=== PATIENT | male | born 1965 | race Caucasian/White ===

== ENCOUNTER → 2021-08-18 11:58 | Outpatient (BNVA) | payer OTHER, SELFPAY | PROVIDERS: PCP Nurse Practitioner; Visit Provider Surgery | DX: Z11.52 Encounter for screening for COVID-19 (principal) | CPT/HCPCS: 87635 ==

== ENCOUNTER 2021-08-23 07:24 | Day surgery (SDC) | payer OTHER, SELFPAY ==
[2021-08-18 12:51] VITALS: BMI 28.2
[2021-08-23 08:02] VITALS: BP 156/100; PULSE 67; RESP 16; TEMP 36.5; O2SAT 97
[2021-08-23] MEDS: sodium chloride 0.9% 1,000 ML 30 ML IV (08:16)
--- NOTE | 2021-08-23 09:36 | ANES.PREANE2 ---
Pre-Anesthetic Assessment Height/Weight: Height 1.83 m Weight 94.347 kg Temp Pulse Resp BP Pulse Ox 97.7 F 67 16 156/100 97 08/23/21 08:02 08/23/21 08:02 08/23/21 08:02 08/23/21 08:02 08/23/21 08:02 Preop Diagnosis: upper gi symptoms Operation Date: 08/23/21 08:45 Proposed Procedures p EGD balloon dilation K22.70(Not Applicable) - Amadeo Velásquez MD Familial anesthetic complications: none Last intake: Intake Last Liquid Date 08/22/21 Last Liquid Time 23:00 Last Solid Date 08/22/21 Last Solid Time 22:00 Social No alcohol and No tobacco Exam alert, oriented x 3, clear to auscultation bilaterally and regular rate & rhythm Airway Dentition: other (poor states his teeth are rotten ) Pulmonary None reported CV/HEM Hypertension None reported Hepatic None reported GI None reported Metabolic None reported Musc/skel None reported Neuropsych None reported Anesthetic Plan ASA status: 2 Anesthesia: MAC Medications/Allergies Home Medications Medication Instructions Recorded Confirmed Last Taken Type allopurinol 300 mg tablet 300 mg PO DAILY 08/15/21 08/18/21 08/23/21 05:00 History metoprolol tartrate 100 mg tablet 50 mg PO BID tab 08/15/21 08/18/21 08/23/21 05:00 History Allergies Allergy/AdvReac Type Severity Reaction Status Date / Time No Known Allergies Allergy Unverified 08/18/21 12:49 Current Medications Generic Name Dose Route Start Last Admin Trade Name Freq PRN Reason Stop Dose Admin Sodium Chloride 1,000 mls @ 30 mls/hr 08/23/21 07:45 08/23/21 08:16 Sodium Chloride 0.9% IV 08/24/21 07:44 30 mls/hr .Q24H LEON Administration PFSH Anesthesia Medical History (Updated 08/15/21 @ 13:56 by Amadeo Velásquez MD) Barretts esophagus GERD (gastroesophageal reflux disease) Hyperlipemia Hypertension PTSD (post-traumatic stress disorder) Surgical History (Updated 08/15/21 @ 13:56 by Amadeo Velásquez MD) H/O esophagogastroduodenoscopy H/O hand surgery left History of colonoscopy 2018 or 2019 History of eye surgery Bilateral History of repair of hiatal hernia Social History Smoking and tobacco status: never smoked Data Anesthesia Cardiac Studies: No Data to Display
--- NOTE | 2021-08-23 11:21 | P.HP_ITS ---
Same Day Surgery H&P Indication for Procedure/HPI DATE OF PROCEDURE: August 23, 2021 CHIEF COMPLAINT/INDICATIONFOR SURGICAL PROCEDURE: screening PREOP DIAGNOSIS: upper gi symptoms PLANNED PROCEDURE: Operation Date: 08/23/21 08:45 Proposed Procedures p EGD balloon dilation K22.70(Not Applicable) - Amadeo Velásquez MD Medications/Allergies* Home Medications Medication Instructions Recorded Confirmed Type allopurinol 300 mg tablet 300 mg PO DAILY 08/15/21 08/18/21 History metoprolol tartrate 100 mg tablet 50 mg PO BID tab 08/15/21 08/18/21 History Allergies/Adverse Reactions Allergy/AdvReac Type Severity Reaction Status Date / Time No Known Allergies Allergy Unverified 08/18/21 12:49 Current Medications: Generic Name Dose Route Start Last Admin Trade Name Freq PRN Reason Stop Dose Admin Sodium Chloride 1,000 mls @ 30 mls/hr 08/23/21 07:45 08/23/21 08:16 Sodium Chloride 0.9% IV 08/24/21 07:44 30 mls/hr .Q24H LEON Administration Pertinent History/Comorbid Conditions* Medical History (Updated 08/15/21 @ 13:56 by Amadeo Velásquez MD) Barretts esophagus GERD (gastroesophageal reflux disease) Hyperlipemia Hypertension PTSD (post-traumatic stress disorder) Surgical History (Updated 08/15/21 @ 13:56 by Amadeo Velásquez MD) H/O esophagogastroduodenoscopy H/O hand surgery left History of colonoscopy 2018 or 2019 History of eye surgery Bilateral History of repair of hiatal hernia Social History Smoking and tobacco status: never smoked Pertinent Exam Findings alert, oriented x 3 and regular rate & rhythm Recommendations Surgery/Procedure today Coding Level of Care Code Acute Litigation Docket Manager for Chg Nikolai
[2021-08-23 11:38] VITALS: BP 140/97; PULSE 84; RESP 18; TEMP 36.6; O2SAT 97
[2021-08-23 11:54] VITALS: BP 152/104; PULSE 76; RESP 16; O2SAT 96
--- NOTE | 2021-08-23 12:57 | ANE.PACU2 ---
Inpatient post-anesthesia follow up: Airway intact: Yes Vital signs: Temperature 97.8 F Pulse Rate 76 Respiratory Rate 16 Blood Pressure 152/104 Pulse Oximetry 96 Oxygen Delivery Me thod Room Air Oxygen Flow Rate Fraction of Inspir ed Oxygen Hydration adequate: Yes Nausea and vomiting: No Pain level: 1 Mental status: Baseline
== END 2021-08-23 12:15 | disposition home or self-care (01) ==
PROVIDERS: PCP Nurse Practitioner; Visit Provider Surgery
DX: K29.70 Gastritis, unspecified, without bleeding (principal); K22.70 Barrett's esophagus without dysplasia; K29.80 Duodenitis without bleeding; K21.9 Gastro-esophageal reflux disease without esophagitis; E78.5 Hyperlipidemia, unspecified; I10 Essential (primary) hypertension
CPT/HCPCS: 43239; 88305; 88342; J2704; J7030

== ENCOUNTER → 2021-10-31 13:09 | Outpatient (BNVA) | payer OTHER, SELFPAY | PROVIDERS: PCP Nurse Practitioner; Referring Provider Nurse Practitioner; Visit Provider Podiatrist Foot & Ankle Surgery | DX: L60.8 Other nail disorders (principal); M72.2 Plantar fascial fibromatosis; Z87.891 Personal history of nicotine dependence | CPT/HCPCS: 73630; 99203; 99204 ==

== ENCOUNTER → 2021-12-05 13:56 | Outpatient (BNVA) | payer OTHER, SELFPAY | PROVIDERS: PCP Nurse Practitioner; Visit Provider Podiatrist Foot & Ankle Surgery | DX: M72.2 Plantar fascial fibromatosis (principal); L60.8 Other nail disorders; M79.672 Pain in left foot | CPT/HCPCS: 99213; 99214 ==

== ENCOUNTER → 2022-02-06 13:08 | Outpatient (BNVA) | payer OTHER, SELFPAY | PROVIDERS: PCP Nurse Practitioner; Visit Provider Podiatrist Foot & Ankle Surgery | DX: M72.2 Plantar fascial fibromatosis (principal); L60.8 Other nail disorders; M79.672 Pain in left foot; M76.72 Peroneal tendinitis, left leg | CPT/HCPCS: 99213; 99214 ==

== ENCOUNTER → 2022-04-17 14:03 | Outpatient (BNVA) | payer OTHER, SELFPAY | PROVIDERS: PCP Nurse Practitioner; Visit Provider Podiatrist Foot & Ankle Surgery | DX: M72.2 Plantar fascial fibromatosis (principal); M76.72 Peroneal tendinitis, left leg; L60.8 Other nail disorders | CPT/HCPCS: 99214 ==

== ENCOUNTER → 2022-07-10 14:54 | Outpatient (BNVA) | payer OTHER, SELFPAY | PROVIDERS: PCP Nurse Practitioner; Visit Provider Podiatrist Foot & Ankle Surgery | DX: M72.2 Plantar fascial fibromatosis (principal); M76.72 Peroneal tendinitis, left leg; L60.8 Other nail disorders | CPT/HCPCS: 99213 ==

== ENCOUNTER 2022-11-19 06:00 | Outpatient (RCR) | payer OTHER, SELFPAY | END 2022-12-19 23:59 | disposition home or self-care (01) | LOC: MOT 06:00 | PROVIDERS: Visit Provider Orthopaedic Surgery Hand Surgery | DX: M24.50 Contracture, unspecified joint (principal) | CPT/HCPCS: 97022; 97110; 97140; 97166 ==

== ENCOUNTER 2022-12-20 06:00 | Outpatient (RCR) | payer OTHER, SELFPAY | END 2023-01-18 23:59 | disposition home or self-care (01) | LOC: MOT 06:00 | PROVIDERS: Visit Provider Orthopaedic Surgery Hand Surgery | DX: M72.0 Palmar fascial fibromatosis [Dupuytren] (principal) | CPT/HCPCS: 97022; 97110; 97140 ==

== ENCOUNTER 2023-01-19 06:00 | Outpatient (RCR) | payer OTHER, SELFPAY | END 2023-02-18 23:59 | disposition home or self-care (01) | LOC: MOT 06:00 | PROVIDERS: Visit Provider Orthopaedic Surgery Hand Surgery | DX: M24.50 Contracture, unspecified joint (principal) | CPT/HCPCS: 97022; 97035; 97110; 97140 ==

== ENCOUNTER 2023-02-19 06:00 | Outpatient (RCR) | payer OTHER, SELFPAY | END 2023-03-21 23:59 | disposition home or self-care (01) | LOC: MOT 06:00 | PROVIDERS: Visit Provider Orthopaedic Surgery Hand Surgery | DX: M24.50 Contracture, unspecified joint (principal) | CPT/HCPCS: 97022; 97035; 97110; 97140 ==

== ENCOUNTER → 2023-04-17 17:21 | Outpatient (BNVA) | payer OTHER, SELFPAY | PROVIDERS: PCP Family Medicine; Visit Provider Internal Medicine Pulmonary Disease | DX: J67.2 Bird fancier's lung (principal); J30.2 Other seasonal allergic rhinitis; R06.02 Shortness of breath; Z77.22 Contact with and (suspected) exposure to environmental tobacco smoke (acute) (chronic); Z87.19 Personal history of other diseases of the digestive system; Z98.890 Other specified postprocedural states | CPT/HCPCS: 36415; 82785; 86003; 86331; 86606; 86609; 99204 ==

== ENCOUNTER 2023-04-25 06:48 | Outpatient (CLI) | payer OTHER, SELFPAY ==
[2023-04-25 07:29] VITALS: PULSE 95; RESP 18; O2SAT 98
[2023-04-25] MEDS: albuterol 2.5 mg/3 mL Neb INHALATION (07:31)
[2023-04-25 07:33] VITALS: PULSE 99
== END 2023-04-25 06:49 | disposition home or self-care (01) ==
PROVIDERS: PCP Family Medicine; Visit Provider Internal Medicine Pulmonary Disease
DX: R06.02 Shortness of breath (principal)
CPT/HCPCS: 94060; 94618; 94726; 94729; J7613

== ENCOUNTER → 2023-05-14 13:34 | Outpatient (BNVA) | payer OTHER, SELFPAY | PROVIDERS: PCP Family Medicine; Visit Provider Internal Medicine Pulmonary Disease | DX: J82.83 Eosinophilic asthma (principal); Z98.890 Other specified postprocedural states; Z87.19 Personal history of other diseases of the digestive system; Z77.22 Contact with and (suspected) exposure to environmental tobacco smoke (acute) (chronic) | CPT/HCPCS: 99214 ==

== ENCOUNTER → 2023-06-18 13:11 | Outpatient (BNVA) | payer OTHER, SELFPAY | PROVIDERS: PCP Family Medicine; Visit Provider Podiatrist Foot & Ankle Surgery | DX: M72.2 Plantar fascial fibromatosis; M76.72 Peroneal tendinitis, left leg; G62.9 Polyneuropathy, unspecified | CPT/HCPCS: 99213 ==

== ENCOUNTER → 2023-08-09 10:09 | Outpatient (BNVA) | payer OTHER, SELFPAY | PROVIDERS: PCP Family Medicine; Visit Provider Internal Medicine Pulmonary Disease | DX: J82.83 Eosinophilic asthma (principal); Z98.890 Other specified postprocedural states; Z87.19 Personal history of other diseases of the digestive system; Z77.22 Contact with and (suspected) exposure to environmental tobacco smoke (acute) (chronic) | CPT/HCPCS: 99214 ==

== ENCOUNTER → 2023-08-13 12:58 | Outpatient (BNVA) | payer OTHER, SELFPAY | PROVIDERS: PCP Family Medicine; Visit Provider Dermatology | DX: L57.8 Other skin changes due to chronic exposure to nonionizing radiation (principal); D18.01 Hemangioma of skin and subcutaneous tissue; L82.1 Other seborrheic keratosis; L91.8 Other hypertrophic disorders of the skin; L57.0 Actinic keratosis | CPT/HCPCS: 17000; 99203 ==

== ENCOUNTER 2024-02-05 14:35 | Outpatient (RCR) | payer OTHER, SELFPAY | END 2024-02-19 23:59 | disposition home or self-care (01) | LOC: SST 14:35 | PROVIDERS: PCP Nurse Practitioner; Visit Provider Nurse Practitioner | DX: R13.10 Dysphagia, unspecified (principal) | CPT/HCPCS: 92610 ==

== ENCOUNTER 2024-03-05 10:24 | Outpatient (CLI) | payer OTHER, SELFPAY ==
--- NOTE | 2024-03-05 10:31 | FL_ITS ---
WS: [id number] EXAMINATION: FL barium swallow modifd [id number] ORDER DATE: 03/05/2024 10:33 AM REASON FOR EXAM: Other dysphagia COMPARISON: None available. FLUOROSCOPY TIME: 1.9 # OF SPOT FILMS: 1, 7 video runs been performed FINDINGS: There is good oral motor control. The swallowing mechanism is intact. There is mild penetration without aspiration of thin liquid consi stency ingested through a straw The barium tablet passed freely into the stomach. FL/FL barium swallow modifd [id number] IMPRESSION: There was penetration without aspiration of thin liquids ingested through a str aw.
== END 2024-03-05 10:25 | disposition home or self-care (01) ==
LOC: RAD 10:25
PROVIDERS: PCP Nurse Practitioner; Visit Provider Nurse Practitioner
DX: R13.19 Other dysphagia (principal)
CPT/HCPCS: 74230; 92611

== ENCOUNTER 2024-03-22 06:30 | Outpatient (RCR) | payer OTHER, SELFPAY | END 2024-04-20 23:59 | disposition home or self-care (01) | LOC: SST 06:30 | PROVIDERS: PCP Nurse Practitioner; Visit Provider Nurse Practitioner | DX: R13.10 Dysphagia, unspecified (principal) | CPT/HCPCS: 92610 ==

== ENCOUNTER 2024-04-21 06:00 | Outpatient (RCR) | payer OTHER, SELFPAY | END 2024-05-21 23:59 | disposition home or self-care (01) | LOC: SST 06:00 | PROVIDERS: PCP Nurse Practitioner; Visit Provider Nurse Practitioner | DX: R13.10 Dysphagia, unspecified (principal) | CPT/HCPCS: 92610 ==

== ENCOUNTER → 2024-04-22 13:35 | Outpatient (BNVA) | payer OTHER, SELFPAY | PROVIDERS: PCP Nurse Practitioner; Visit Provider Surgery | DX: R13.10 Dysphagia, unspecified (principal); K21.9 Gastro-esophageal reflux disease without esophagitis | CPT/HCPCS: 99204; 99214 ==

== ENCOUNTER 2024-04-28 10:24 | Day surgery (SDC) | payer OTHER, SELFPAY ==
--- NOTE | 2024-04-28 10:40 | W.PM.OPSUD ---
Surgery/Procedure H&P Update DATE OF PROCEDURE: April 28, 2024 DATE H&P PERFORMED: 04/22/24 H&P UPDATE INFORMATION: I have reviewed H&P completed within last 30 days, I have examined patient prior to procedure, No changes to prior documentation and Changes to prior documentation as noted here PLANNED PROCEDURE: Operation Date: 04/28/24 11:35 Proposed Procedures p EGD 24891, K21.9(Not Applicable) - Huan Fuller MD
[2024-04-28 10:44] VITALS: BP 145/104; PULSE 89; RESP 18; TEMP 36.3; O2SAT 95
[2024-04-28] MEDS: sodium chloride 0.9% 1,000 ML 30 ML IV (11:04)
--- NOTE | 2024-04-28 11:09 | ANES.PREANE2 ---
Pre-Anesthetic Assessment Height/Weight: Height 1.83 m Weight 101.151 kg Temp Pulse Resp BP Pulse Ox O2 Del Method 97.3 F L 89 18 145/104 95 Room Air 04/28/24 10:44 04/28/24 10:44 04/28/24 10:44 04/28/24 10:44 04/28/24 10:44 04/28/24 10:44 Preop Diagnosis: GERD Operation Date: 04/28/24 11:35 Proposed Procedures p EGD 09662, K21.9(Not Applicable) - Huan Fuller MD Familial anesthetic complications: trouble waking up Was Beta Shant taken within 24 hours: N/A Was Clonidine taken within 24 hours: N/A Last intake: Intake Last Liquid Date 04/27/24 Last Liquid Time 23:55 Last Solid Date 04/27/24 Last Solid Time 17:00 Social Alcohol ( very little ) and No tobacco Exam alert, oriented x 3, clear to auscultation bilaterally and regular rate & rhythm Airway Submandibular: within normal limits Cervical ROM: within normal limits Mallampati: Class I Dentition: chipped and full Pulmonary Exertional Dyspnea bronchiole issue CV/HEM Hypertension None reported Hepatic None reported GI Gastroesophageal Reflux Disease Metabolic None reported Musc/skel Scoliosis Gout Neuropsych Anxiety and Headache Anesthetic Plan ASA status: 2 Anesthesia: MAC Risk of > 500 ml blood loss (7ml/kg in children): No Medications/Allergies Home Medications Medication Instructions Recorded Confirmed Last Taken Type allopurinol 300 mg tablet 300 mg PO DAILY 08/15/21 04/27/24 04/27/24 History Carbon fiber sport custom insoles #1 ea 10/31/21 04/22/24 04/27/24 Rx prednisone 20 mg tablet 20 mg PO DAILY #28 tabs 04/17/23 04/27/24 04/27/24 Rx gabapentin 100 mg capsule 100 mg PO BID 06/18/23 04/27/24 04/27/24 History albuterol sulfate 90 mcg/actuation 2 puff inhalation Q6H PRN 08/09/23 04/27/24 04/27/24 Rx aerosol inhaler shortness of breath or wheezing #8.5 grams fluticasone 250 mcg-salmeterol 50 1 inh inhalation BID #60 ea 08/09/23 04/27/24 04/27/24 Rx mcg/dose blistr powdr for inhalation (Wixela Inhub) Allergies Allergy/AdvReac Type Severity Reaction Status Date / Time No Known Allergies Allergy Verified 04/27/24 09:00 Current Medications Generic Name Dose Route Start Last Admin Trade Name Freq PRN Reason Stop Dose Admin Sodium Chloride 1,000 mls @ 30 mls/hr 04/28/24 10:30 04/28/24 11:04 Sodium Chloride 0.9% IV 30 mls/hr .Q24H LEON Administration PFSH Anesthesia Medical History Helicobacter pylori gastritis Barretts esophagus PTSD (post-traumatic stress disorder) Hyperlipemia Hypertension GERD (gastroesophageal reflux disease) Surgical History (Updated 04/22/24 @ 13:48 by Kadi Hooper, CT) H/O hand surgery left H/O esophagogastroduodenoscopy (08/23/21) History of repair of hiatal hernia History of eye surgery Bilateral History of colonoscopy 2018 or 2019 Family History (Updated 04/22/24 @ 13:46 by Kadi Hooper, CT) Mother Cancer lung Social History Smoking and tobacco/nicotine status: never used tobacco/nicotine Data Anesthesia Cardiac Studies: No Data to Display
[2024-04-28 11:36] VITALS: BP 136/107; PULSE 95; RESP 12; TEMP 36.3; O2SAT 92
[2024-04-28 11:51] VITALS: BP 131/93; PULSE 75; RESP 16; O2SAT 95
--- NOTE | 2024-04-28 12:20 | ANE.PACU2 ---
Inpatient post-anesthesia follow up: Airway intact: Yes Vital signs: Temperature 97.4 F Pulse Rate 75 Respiratory Rate 16 Blood Pressure 131/93 Pulse Oximetry 95 Oxygen Delivery Me thod Room Air Oxygen Flow Rate Fraction of Inspir ed Oxygen Hydration adequate: Yes Nausea and vomiting: No Pain level: 1 Mental status: Baseline
== END 2024-04-28 12:25 | disposition home or self-care (01) ==
PROVIDERS: PCP Nurse Practitioner; Visit Provider Surgery
PROC: 0DJ08ZZ Inspection of Upper Intestinal Tract, Via Natural or Artificial Opening Endoscopic (ICD-10-PCS; CPT 43235; principal; 2024-04-28 11:35)
DX: K21.9 Gastro-esophageal reflux disease without esophagitis (principal); K29.70 Gastritis, unspecified, without bleeding; E78.5 Hyperlipidemia, unspecified; I10 Essential (primary) hypertension
CPT/HCPCS: 43239; 88305; J2704; J7030

== ENCOUNTER → 2024-05-13 09:36 | Outpatient (BNVA) | payer OTHER, SELFPAY | PROVIDERS: PCP Nurse Practitioner; Visit Provider Surgery | DX: Z09 Encounter for follow-up examination after completed treatment for conditions other than malignant neoplasm (principal); R03.0 Elevated blood-pressure reading, without diagnosis of hypertension | CPT/HCPCS: 99213 ==

== ENCOUNTER 2024-07-30 08:55 | Outpatient (CLI) | payer OTHER, SELFPAY ==
--- NOTE | 2024-07-30 09:01 | FL_ITS ---
WS: [id number] Barium swallow and esophagram, 07/30/2024 Clinical Data: R13.14 DYSPHAGIA, PHARYNGOESPHAGEAL PHASE Comparison: None. Fluoroscopy time: 1min [id number] # of spot films: 43 Findings: The patient swallowed the thick and thin barium, and it flowed through the hypopharynx without hesita tion. No stricture, mass, polyp or erosion was seen. No penetration or aspiration occurred. The barium entered the esophagus and there was normal motility throughout. No reflux, stricture, afsaneh yp, mass, erosion or ulcer was noted. There was a small sliding hiatal hernia. The barium passed norm ally into the stomach. FL/FL barium swallow [id number] Impression: 1. Negative for aspiration or penetration. 2. Small sliding hiatal hernia without reflux.
== END 2024-07-30 08:56 | disposition home or self-care (01) ==
LOC: RAD 08:56
PROVIDERS: PCP Nurse Practitioner; Visit Provider Otolaryngology
DX: R05.3 Chronic cough (principal); J37.0 Chronic laryngitis; R13.14 Dysphagia, pharyngoesophageal phase; K21.9 Gastro-esophageal reflux disease without esophagitis; R09.89 Other specified symptoms and signs involving the circulatory and respiratory systems; K44.9 Diaphragmatic hernia without obstruction or gangrene
CPT/HCPCS: 74220

== ENCOUNTER 2024-08-05 08:36 | Outpatient (CLI) | payer OTHER, SELFPAY ==
--- NOTE | 2024-08-05 08:38 | CT_ITS ---
WS: [id number] CT NECK WITH CONTRAST HISTORY: CHRONIC COUGH TECHNIQUE: Contiguous 2 mm axial images are performed through the neck with intravenous contrast. Sag ittal and coronal reformats are also submitted. All CT scans at [facility] use at least one o f these dose optimization techniques: automated exposure control; mA and/or kV adjustment per patient size (includes targeted exams where dose is matched to clinical indication); or iterative reconstruc tion. CONTRAST: CONTRAST: Omnipaque 350; 100 mL IV. DLP: 208.43 mGy.cm COMPARISON: 05/02/2023 Nasopharynx, oropharynx, hypopharynx and larynx are unremarkable. No soft tissue masses or abnormal e nhancement. Torus tubarius and fossa of Rosenmuller and parapharyngeal fat are normal. Small cervical chain lymph nodes measure up to 9 mm at level 2 on the RIGHT. There are subcentimeter lymph nodes extending along the cervical chains in the supraclavicular region. These lymph nodes are small caliber but and not necrotic. Normal appearance of the thyroid gland LEFT parotid 5.3 mm enhancing mass is probably a lymph node. No osseous abnormalities. Visualized portions of the skull base demonstrate no abnormalities. Orbits and globes are within norm al limits. No soft tissue masses. Visualized paranasal sinuses and mastoid air cells are normal. RIGHT apical nodule similar to the study from 05/02/2023. CT/CT neck w con* [id number] IMPRESSION: 1. No laryngeal mass or tongue base mass or abnormal enhancement. 2. Small cervical chain lymph nodes. No adenopathy.
[2024-08-05] MEDS: iohexol 350 mg/mL 500 mL Btl (per mL) IV (09:05)
== END 2024-08-05 08:37 | disposition home or self-care (01) ==
LOC: RAD 08:36
PROVIDERS: PCP Nurse Practitioner; Visit Provider Otolaryngology
DX: R05.3 Chronic cough (principal); J37.0 Chronic laryngitis; R13.14 Dysphagia, pharyngoesophageal phase; K21.9 Gastro-esophageal reflux disease without esophagitis; R09.89 Other specified symptoms and signs involving the circulatory and respiratory systems; R59.0 Localized enlarged lymph nodes; R93.89 Abnormal findings on diagnostic imaging of other specified body structures; R91.1 Solitary pulmonary nodule
CPT/HCPCS: 70491

== ENCOUNTER → 2024-08-13 12:48 | Outpatient (BNVA) | payer OTHER, SELFPAY | PROVIDERS: PCP Nurse Practitioner; Visit Provider Nurse Practitioner Family | DX: D18.01 Hemangioma of skin and subcutaneous tissue (principal); L91.8 Other hypertrophic disorders of the skin; L57.8 Other skin changes due to chronic exposure to nonionizing radiation | CPT/HCPCS: 99213 ==

== ENCOUNTER → 2024-12-02 13:45 | Outpatient (BNVA) | payer OTHER, SELFPAY | PROVIDERS: PCP Nurse Practitioner; Referring Provider Nurse Practitioner; Visit Provider Anesthesiology Pain Medicine | DX: M54.9 Dorsalgia, unspecified (principal); G62.9 Polyneuropathy, unspecified; M47.816 Spondylosis without myelopathy or radiculopathy, lumbar region | CPT/HCPCS: 99204 ==

== ENCOUNTER → 2024-12-22 14:29 | Outpatient (BNVA) | payer OTHER, SELFPAY | PROVIDERS: PCP Nurse Practitioner; Visit Provider Anesthesiology Pain Medicine | DX: M47.816 Spondylosis without myelopathy or radiculopathy, lumbar region (principal); M54.9 Dorsalgia, unspecified | CPT/HCPCS: 64635; 64636; J1010; J9999 ==

== ENCOUNTER → 2025-01-06 10:33 | Outpatient (BNVA) | payer OTHER, SELFPAY | PROVIDERS: PCP Nurse Practitioner; Visit Provider Anesthesiology Pain Medicine | DX: M47.816 Spondylosis without myelopathy or radiculopathy, lumbar region (principal); M54.9 Dorsalgia, unspecified | CPT/HCPCS: 64635; 64636; J1100; J9999 ==

== ENCOUNTER → 2025-01-25 13:45 | Outpatient (BNVA) | payer OTHER, SELFPAY | PROVIDERS: PCP Nurse Practitioner; Visit Provider Anesthesiology Pain Medicine | DX: M54.9 Dorsalgia, unspecified (principal); G62.9 Polyneuropathy, unspecified; M47.816 Spondylosis without myelopathy or radiculopathy, lumbar region | CPT/HCPCS: 99214 ==

== ENCOUNTER 2025-02-02 10:25 | Outpatient (CLI) | payer OTHER, SELFPAY ==
--- NOTE | 2025-02-02 10:29 | FL_ITS ---
WS: [email or web address] FL barium swallow modifd [id number] REASON FOR EXAM: Pharyngoesoph. dysphagia FLUOROSCOPY TIME: 2min [id number] # OF SPOT FILMS: 0 TECHNIQUE: The examination was supervised by the speech therapy department. Patient was examined in the upright sitting lateral projection. The swallowing of multiple consistencies of barium was monitored fluoroscopically and video recorded. FINDINGS: With thin liquids there was penetration of contrast into the laryngeal vestibule without lorne aspiration. There was no impedance to the passage of the barium tablet through the thoracic esophagus and into the stomach. FL/FL barium swallow modifd [id number] IMPRESSION: A detailed report of the swallowing will be rendered by the speech therapy depa rtment. Penetration without lorne aspiration. No esophageal obstruction.
== END 2025-02-02 10:26 | disposition home or self-care (01) ==
LOC: RAD 10:25
PROVIDERS: PCP Nurse Practitioner; Visit Provider Otolaryngology
DX: R13.14 Dysphagia, pharyngoesophageal phase (principal); R09.A2 Foreign body sensation, throat; K21.9 Gastro-esophageal reflux disease without esophagitis
CPT/HCPCS: 74230; 92611

== ENCOUNTER 2025-02-03 09:17 | Outpatient (CLI) | payer OTHER, SELFPAY ==
--- NOTE | 2025-02-03 09:30 | MR_ITS ---
WS: [id number] MRI LUMBAR SPINE NONCONTRAST HISTORY: M54.16 - Radiculopathy, lumbar region COMPARISON: None available. TECHNIQUE: Sagittal and axial multisequence imaging is submitted. There are 5 nonrib-bearing lumbar vertebral bodies. Numbering the vertebral bodies from the cervical spine suggest there may be 13 thoracic vertebral bodies. Slight increase in the lumbar lordosis. 3 mm retrolisthesis of L2. No marrow edema or fracture. Disc spaces and vertebral body heights are well-preserved. Conus terminates normally at L1-2 disc level. L1-L2: Normal. L2-L3: Mild retrolisthesis with annular disc bulging and mild osteophytic ridging. Disc contacts the traversing L3 nerve roots in the subarticular recesses. Mild ligamentum flavum and facet arthritis. Small amount of fluid in the facet joints. Mild bilateral foraminal stenosis, LEFT greater than RIGHT. No central stenosis, mild subarticular recess stenosis. L3-L4: Mild facet and ligamentum flavum hypertrophy. No disc protrusions. Mild bilateral foraminal stenosis. L4-L5: Moderate bilateral facet joint arthropathy. Bilateral foraminal disc protrusions. Annular fissure on the RIGHT. Moderate ligamentum flavum hypertrophy. Moderate bilateral foraminal stenosis with mild subarticular recess narrowing. L5-S1: Mild disc bulging with bilateral facet joint arthropathy, RIGHT greater than LEFT. No disc protrusions. Moderate bilateral foraminal stenosis due to disc osteophyte disease. Paravertebral soft tissues are negative. MR/MR lumbar spine wo con* [id number] IMPRESSION: 1. Moderate bilateral foraminal stenosis due to disc osteophyte disease at L4- 5 and L5-S1. 2. L4-5: Bilateral foraminal disc protrusions and mild subarticular recess alfonzo rowing. 3. L2-3: Slight retrolisthesis of L2. There is mild disc contacting the L3 ner ve roots in the subarticular recesses. Mild bilateral foraminal stenosis and hirsch barticular recess stenosis. 4. Bilateral facet joint arthropathy from L2-3 through L5-S1. Greatest at L4-5 and L5-S1.
== END 2025-02-03 09:18 | disposition home or self-care (01) ==
PROVIDERS: PCP Nurse Practitioner; Visit Provider Anesthesiology Pain Medicine
DX: M54.16 Radiculopathy, lumbar region (principal); M48.061 Spinal stenosis, lumbar region without neurogenic claudication; M48.07 Spinal stenosis, lumbosacral region; M51.26 Other intervertebral disc displacement, lumbar region; M47.816 Spondylosis without myelopathy or radiculopathy, lumbar region; M47.817 Spondylosis without myelopathy or radiculopathy, lumbosacral region
CPT/HCPCS: 72148

== ENCOUNTER → 2025-02-08 13:20 | Outpatient (BNVA) | payer OTHER, SELFPAY | PROVIDERS: PCP Nurse Practitioner; Visit Provider Anesthesiology Pain Medicine | DX: M54.9 Dorsalgia, unspecified (principal); G62.9 Polyneuropathy, unspecified; M47.816 Spondylosis without myelopathy or radiculopathy, lumbar region; Z87.891 Personal history of nicotine dependence | CPT/HCPCS: 99214 ==

== ENCOUNTER → 2025-05-10 12:58 | Outpatient (BNVA) | payer OTHER, SELFPAY | PROVIDERS: PCP Nurse Practitioner; Visit Provider Anesthesiology Pain Medicine | DX: M47.816 Spondylosis without myelopathy or radiculopathy, lumbar region (principal); G62.9 Polyneuropathy, unspecified | CPT/HCPCS: 99214 ==